=== PATIENT | female | born 1960 | race Caucasian/White ===

== ENCOUNTER 2019-12-26 05:58 | Day surgery (SDC) | payer OTHER, SELFPAY ==
[~2019-12-26] VITALS: Ht 157.5 cm; Wt 72.6 kg
[2019-12-26] MEDS ORDERED: PRAV40TA4 PO (06:33)
[2019-12-26] MEDS ORDERED: LIDOCAINE 2% 100 MG/5 ML UJET TP ONE (07:22)
[2019-12-26] MEDS ORDERED: fentaNYL citrate 0.05 MG/ML VIAL ONE (07:22)
[2019-12-26] MEDS ORDERED: SIMETHICONE 40 MG/0.6 ML ONE (07:58)
[2019-12-26] MEDS ORDERED: fentaNYL citrate 0.05 MG/ML VIAL IVP ONE (08:45)
== END 2019-12-26 08:30 | disposition home or self-care (01) ==
LOC: MDS 05:58 → MMU 05:58 → MDS 08:30
PROVIDERS: ATTEND Internal Medicine Gastroenterology
DX: Z12.11 Encounter for screening for malignant neoplasm of colon (principal); E78.5 Hyperlipidemia, unspecified; K76.0 Fatty (change of) liver, not elsewhere classified; Z20.828 Contact with and (suspected) exposure to other viral communicable diseases; Z79.899 Other long term (current) drug therapy
CPT/HCPCS: 45378; J3010; U0003